=== PATIENT | male | born 1955 | race Caucasian/White ===

== ENCOUNTER 2016-12-10 00:59 | Inpatient (IN) | payer OTHER ==
[2016-12-10] VITALS (26 sets, daily range): BP systolic 111–199; BP diastolic 66–118; PULSE 58–97; RESP 15–20; TEMP 97.5–98.4; O2SAT 93–97
[~2016-12-10] VITALS: Ht 170.2 cm; Wt 70.7 kg
[2016-12-10] MEDS ORDERED: SODIUM CHLOR 0.9% 1000 ML INJ 1,000 ML IV ONE (01:20)
[2016-12-10] MEDS ORDERED: NITROGLYCERIN 0.4 MG SL 25 TABS/BTL SL STA (01:20)
[2016-12-10] MEDS ORDERED: HEPARIN SODIUM - IV 10,000 UNITS/10 ML VIAL IV STA (01:20)
[2016-12-10] MEDS ORDERED: ASPIRIN 81 MG CHEW TAB PO STA (01:20)
[2016-12-10] MEDS ORDERED: ASPIRIN 81 MG CHEW TAB ONE (01:25)
[2016-12-10] MEDS ORDERED: HEPARIN SODIUM - IV 10,000 UNITS/10 ML VIAL ONE (01:26)
[2016-12-10] MEDS ORDERED: NITROGLYCERIN-DEXTROSE INJ 250 ML IV SCH ×2 (01:30→04:15)
[2016-12-10] MEDS ORDERED: SODIUM CHLORIDE 0.9% FLUSH 5 ML FLUSH IVF PRN ×2 (01:30→04:15)
--- NOTE | 2016-12-10 01:32 | PD ---
HPI Chief Complaint: Chest Pain Time Seen by Provider: 01:20 Travel History International Travel<30 days: No Contact w/Intl Traveler<30days: No Traveled to known affect area: No History of Present Illness HPI The patient is a 61-year-old male who presents emergency department for chest pain. The patient states she was awakened with chest pain. The chest pain is substernal, associated with pain in the right elbow, and present intermittently for the last month. The patient states every time he gets substernal chest pain that he described as pressure, he will also have right elbow pain. He did have mild nausea earlier today, but denies any vomiting. The patient does have a history of hypertension and tobacco use, denies any known history of hyperlipidemia, previous CAD, or diabetes. The patient does state his mother from heart attack. The patient denies any recent exertional symptoms, but states his episodes of pain will last approximately 25- 30 minutes. There are no known alleviating or precipitating factors. PFSH Past Medical History Medical History: Denies Significant Hx Diminished Hearing: No Immunizations Current: Yes Past Surgical History Appendectomy: Yes Social History Alcohol Use: Yes (3 PINTS M-F) Tobacco Use: Yes (1PPD) Substance Use: No Allergies-Medications (Allergen,Severity, Reaction): Coded Allergies: No Known Allergies (Unverified , 12/10/16) Reported Meds & Prescriptions Reported Meds & Active Scripts Active No Active Prescriptions or Reported Medications Review of Systems Except as stated in HPI: all other systems reviewed are Neg General / Constitutional: No: Fever HENT: Positive: Lightheadedness Cardiovascular: Positive: Chest Pain or Discomfort, No: Diaphoresis, Dyspnea on exertion Respiratory: No: Shortness of Breath Gastrointestinal: Positive: Nausea Musculoskeletal: No: Weakness Neurologic: Positive: Dizziness Physical Exam Narrative GENERAL: Awake, alert, pleasant 61-year-old male who appears his stated age and is in no acute respiratory distress. SKIN: Warm and dry. HEAD: Atraumatic. Normocephalic. EYES: Pupils equal and round. No scleral icterus. No injection or drainage. ENT: No nasal bleeding or discharge. Mucous membranes pink and moist. NECK: Trachea midline. No JVD. CARDIOVASCULAR: Regular rate and rhythm. No murmur appreciated. Heart rate is in the 80s. RESPIRATORY: No accessory muscle use. Clear to auscultation. Breath sounds equal bilaterally. GASTROINTESTINAL: Abdomen soft, non-tender, nondistended. No rebound tenderness. MUSCULOSKELETAL: No obvious deformities. No clubbing. No cyanosis. No edema. NEUROLOGICAL: Awake and alert. No obvious cranial nerve deficits. Motor grossly within normal limits. Normal speech. PSYCHIATRIC: Appropriate mood and affect; insight and judgment normal. Data Data Last Documented VS Vital Signs Date Time Temp Pulse Resp B/P Pulse Ox O2 Delivery O2 Flow Rate FiO2 12/10/16 01:14 73 18 99 Nasal Cannula 2 12/10/16 01:10 97.9 184/106 Orders Troponin I (12/10/16 01:20) Ckmb (Isoenzyme) Profile (12/10/16 01:20) Complete Blood Count With Diff (12/10/16:20) I-Stat Profile (12/10/16 01:20) I-Stat Creatinine (12/10/16 01:20) Calcium (12/10/16:20) Magnesium (Mg) (12/10/16 01:20) Prothrombin Time / Inr (Pt) (12/10/16 01:20) Act Partial Throm Time (Ptt) (12/10/16 01:20) B-Type Natriuretic Peptide (12/10/16 01:20) Chest, Single Ap (12/10/16 01:20) Electrocardiogram (12/10/16 01:20) Oxygen Administration (12/10/16 01:20) Iv Access Insert/Monitor (12/10/16 01:20) Oximetry (12/10/16 01:20) Sodium Chlor 0.9% 1000 Ml Inj (Ns 1000 M (12/10/16 01:20) Sodium Chloride 0.9% Flush (Ns Flush) (12/10/16 01:30) Aspirin Chew (Aspirin Chew) (12/10/16 01:20) Nitroglycerin Sl (Nitrostat Sl) (12/10/16 01:20) Nitroglycerin-Dextrose Inj (Nitroglyceri (12/10/16 01:30) Heparin Inj (Heparin Inj) (12/10/16 01:20) Aspirin Chew (Aspirin Chew) (12/10/16 01:25) Heparin Inj (Heparin Inj) (12/10/16 01:26) MDM Medical Decision Making Medical Screen Exam Complete: Yes Emergency Medical Condition: Yes Medical Record Reviewed: Yes Interpretation(s) EKG reveals normal sinus rhythm with a rate 85. EKG reveals ST elevations in lead 3 of 1-2 mm and aVF of just over 1 mm. Patient also has reciprocal changes with ST depression in V2 and V3 of 2-3 mm. No obvious tall R-wave in V2 or V3, I think most likely inferior origin as opposed to posterior NC. Chest x-ray unremarkable, no evidence of dissection I-STAT revealed creatinine 0.9, sodium 137, potassium 4.1, chloride 102, BUN 14 , glucose 149, hemoglobin 17.7, hematocrit 52 Differential Diagnosis Differential diagnosis includes STEMI, ACS, GERD, esophageal spasm, pulmonary embolism, pericarditis, myocarditis, peptic ulcer disease, gastritis, atypical cholecystitis, pancreatitis. Narrative Course IV was established, labs are drawn and sent, and the patient was placed on cardiac telemetry monitoring and continuous pulse oximetry monitoring. EKG was ordered and interpreted. Patient's EKG was concerning for mild ST elevation in lead 3 and aVF with reciprocal changes in lead V2 and V3. I discussed the patient with the on-call STEMI physician/fiberglass pipe covering supervisor, Dr. Aguilera, who states to call a STEMI alert. The patient was administered aspirin, nitroglycerin, placed on a heparin drip and nitro drip. The patient will be admitted to the fiberglass pipe covering supervisor after going to the cardiac catheterization lab. Physician Communication Physician Communication I discussed the patient with Dr. Aguilera who will take the patient to the cardiac catheterization lab. The patient will be admitted to [facility]. Diagnosis Primary Impression: STEMI (ST elevation myocardial infarction) Qualified Code: I21.3 - ST elevation myocardial infarction (STEMI), unspecified artery Scripts No Active Prescriptions or Reported Meds Condition: Stable Jose Elias Rosado MD Dec 10, 2016 01:32
[2016-12-10 01:45] LABS: BASOPHIL # 0.1 TH/MM3 (0-0.2); BASOPHIL % 0.6 % (0.0-2.0); EOSINOPHIL # 0.3 TH/MM3 (0-0.4); EOSINOPHIL % 2.9 % (0.0-4.0); HEMO FLAGS DIFF FINAL; LYMPH % 25.1 % (9.0-44.0); LYMPHOCYTE # 2.2 TH/MM3 (1.0-4.8); MEAN CELL VOLUME 93.7 FL (80.0-100.0); MEAN CORPUSCULAR HGB CONC 34.2 % (32.0-36.0); MONO % 13.2 % (0.0-8.0); NEUT % 58.2 % (16.0-70.0); PLATELET COUNT 139 TH/MM3 (150-450); RED BLOOD COUNT 5.45 MIL/MM3 (4.50-5.90); RED CELL DISTRIBUTION WIDTH 13.7 % (11.6-17.2); WHITE BLOOD COUNT 8.7 TH/MM3 (4.0-11.0)
[2016-12-10 01:51] LABS: I-STAT POTASSIUM 4.1 MMOL/L (3.5-4.9); I-STAT SODIUM 137 MMOL/L (138-146)
[2016-12-10 01:54] LABS: APTT (PATIENT) 27.1 SEC (24.3-30.1); INTERNATIONAL NORMALIZED RATIO 1.1 RATIO; PROTHROMBIN TIME - PATIENT 11.9 SEC (9.8-11.6)
[2016-12-10] MEDS ORDERED: HEPARIN-NS/PF INJ 500 ML ONE (02:00)
[2016-12-10] MEDS ORDERED: MIDAZOLAM HCL 2 MG/2 ML VIAL ONE (02:01)
[2016-12-10 02:16] LABS: MAGNESIUM 2.1 MG/DL (1.5-2.5)
[2016-12-10] MEDS ORDERED: IOHEXOL 350 MG/ML 100 ML BTL (for Cath Lab) OTHER ONE (02:17)
[2016-12-10] MEDS ORDERED: IOHEXOL 350 MG/ML 50 ML BTL (for Cath Lab) OTHER ONE (02:17)
[2016-12-10 02:28] LABS: CREATINE KINASE 300 U/L (39-308)
[2016-12-10] MEDS ORDERED: BIVALIRUDIN 250 MG VIAL ONE (02:30)
--- NOTE | 2016-12-10 02:39 | RADRPT ---
EXAM DATE/TIME: 12/10/2016 01:36 [facility] COMPARISON: No previous studies available for comparison. INDICATIONS : Chest pain. MEDICAL HISTORY : None. SURGICAL HISTORY : None. ENCOUNTER: Initial ACUITY: 1 day PAIN SCORE: 7/10 LOCATION: Bilateral chest FINDINGS: A single view of the chest demonstrates the lungs to be symmetrically aerated without evidence of mas s, infiltrate or effusion. The cardiomediastinal contours are unremarkable. Osseous structures are intact. CONCLUSION: No acute disease. Eros Avila MD on December 10, 2016 at 2:36 Board Certified Radiologist. This report was verified electronically.
[2016-12-10 02:43] LABS: CKMB 28.1 NG/ML (0.5-3.6)
[2016-12-10] MEDS ORDERED: TICAGRELOR 90 MG TAB PO ONE (03:52)
[2016-12-10] MEDS ORDERED: oxyCODONE/ACETAMINOPHEN 5 MG/325 MG TAB PO PRN (04:15)
[2016-12-10] MEDS ORDERED: ACETAMINOPHEN 325 MG TAB PO PRN (04:15)
[2016-12-10] MEDS ORDERED: TEMAZEPAM 15 MG CAP PO PRN (04:15)
[2016-12-10] MEDS ORDERED: MISC INFORMATION XX ONE (04:15)
[2016-12-10] MEDS: SODIUM CHLOR 0.9% 1000 ML INJ 1,000 ML IV SCH ×2 (05:00→14:11)
--- NOTE | 2016-12-10 05:09 | MH ---
cc: BRAD QUEEN M.D. DATE OF ADMISSION: 12/10/2016 ADMISSION DIAGNOSES 1. Acute inferior ST-segment elevation myocardial infarction. 2. History of hypertension. 3. Chronic tobacco abuse. CHIEF COMPLAINT Chest pain. HISTORY OF PRESENT ILLNESS This is a 61-year-old man who has been having intermittent chest pain with pain in the right elbow for the past month; it has been getting progressively worse. He describes it as a pressure. He had some mild nausea today. He has a history of hypertension and tobacco, no known hyperlipidemia. His mother of a heart attack. The chest pains are coming and going, lasting 30 minutes at a time. PAST MEDICAL HISTORY Otherwise unremarkable. PAST SURGICAL HISTORY Appendectomy. SOCIAL HISTORY Drinks three pints a day Wednesday through Wednesday. Smokes a pack a day. ALLERGIES None. REVIEW OF SYSTEMS Otherwise noncontributory. PHYSICAL EXAMINATION GENERAL: A well-developed, well-nourished white male in mild distress. HEENT: Exam unremarkable. NECK: No JVD, no bruits. CHEST: Clear to auscultation. CARDIAC EXAM: S1, S2. Regular rate and rhythm. No murmurs or gallops. ABDOMEN: Soft, nontender. EXTREMITIES: No clubbing, cyanosis or edema. NEUROLOGIC: Alert and oriented. CARDIOLOGY STUDIES EKG shows an acute inferior STEMI. Labs are charted. IMPRESSION Acute inferior STEMI. PLAN 1. Please see cathode maker procedure note. The patient has had the circumflex stented with a complex procedure required. 2. We are going to put him on aspirin, Brilinta, beta caryn, STACI inhibitor and statin therapy. 3. Anticipate hospital stay of two days. 4. Consult [facility] for medical management. Brad Queen MD VEW/SSB /4:19 AM /5:03 AM
--- NOTE | 2016-12-10 05:25 | MA ---
cc: BRAD QUEEN M.D. DATE 12/10/2016 PROCEDURE PERFORMED 1. Left heart catheterization. 2. Left ventriculography. 3. Coronary angiography. 4. Stenting of the major first obtuse marginal branch of the left circumflex artery. 5. Complex and balloon angioplasty of mid to distal circumflex artery. 6. Balloon angioplasty of a second obtuse marginal branch. 7. AngioSeal. BRIEF HISTORY Oleksandr Brown is a 61-year-old man with hypertension and smoking history who presents with an acute inferior myocardial infarction. DESCRIPTION OF PROCEDURE The patient was brought to the Cardiac Clicker Operator under emergency conditions. At the start of procedure he was actually pain-free. Using 1% lidocaine for local anesthesia, a 6.5-Albanian sheath was easily inserted in the right femoral artery. Left coronary angiography was completed using a left 4 Derrick catheter. Right coronary angiography was completed using a 3DRC catheter. To perform intervention, I chose a 6-Albanian XB 4.0 guiding catheter. Next, I tried to wire the distal circumflex. There was more than a 180-degree bend to get into the distal circumflex. I was able to get a wire into a small second obtuse marginal branch but not into the distal circumflex proper. I then placed a wire down the obtuse marginal branch. I then took a [employer] wire and with extreme bend on it was able to get it into the distal circumflex vessel. The first obtuse marginal branch was then directly stented utilizing a 3.0 x 15-mm Resolute stent at 8 atmospheres. An excellent result was achieved in the obtuse marginal branch proper. I then ballooned the mid to distal circumflex utilizing a 2.0-mm balloon. The second obtuse marginal branch was subtotally occluded at this point and I went ahead and ballooned this utilizing a 2.0 balloon. I then opted to try to stent the mid to distal circumflex. It comes off at a 90-degree angle. A 3-mm stent would not cross. I then predilated further with 2.5-mm balloon. I was then able to deliver a 2.75 x 18-mm Resolute stent and deployed this at 14 atmospheres. Angiography now demonstrates a widely patent OM branch as well as the distal circumflex. The second obtuse marginal branch also remained patent. The patient tolerated procedure well and was free of chest pain at the end of the procedure with no complications. An angled pigtail catheter was used to measure left ventricular pressure followed by left ventriculography and then a pullback. The posterobasal segment of the left ventricle is akinetic. The estimated ejection fraction is 40%. There is 1+ mitral regurgitation. Next angiography was obtained of the right femoral artery via the sheath, followed by uncomplicated AngioSeal placement. The patient is now being prepped to go back to his room. FINDINGS I. HEMODYNAMICS. Left ventricular pressure was 114 over 13 with an end-diastolic pressure elevated at 34. Aortic pressure is 147/79 with a mean of 107. There was no gradient during pullback from the left ventricle to the aorta. II. LEFT VENTRICULOGRAPHY Left ventriculography shows posterobasal akinesis with an estimated ejection fraction of 40%. III. CORONARY ANGIOGRAPHY The left main coronary artery is large and normal-appearing. The left anterior descending artery is a transapical vessel with diffuse irregularities. It has at most about 20% proximal stenosis. There is a small caliber ramus intermediate branch which is actually smaller than 2-mm that has 70% ostial and mid disease. The circumflex artery is technically dominant. The major obtuse marginal branch has a focal 99% proximal stenosis coming off at a 90-degree angle from the circumflex marginal branches. The distal circumflex vessel which is subtotally occluded with only JEZ-1 flow. There is a second obtuse marginal branch which also has only JEZ-1 flow. The right coronary artery is nondominant with 40-50% diffuse disease. RESULTS OF INTERVENTION 1. Following stenting of the obtuse marginal branch a 0% residual stenosis had been achieved. 2. Following stenting of the mid to distal circumflex vessel a 0% residual stenosis had been achieved. 3. Following balloon angioplasty of a small second obtuse marginal branch, a 20% residual stenosis is achieved. CONCLUSIONS Successful complex intervention on a dominant circumflex, technically a bifurcation type lesion with excellent angiographic result achieved. PLAN 1. The patient has been loaded with Brilinta. We will continue aspirin and Brilinta. 2. We will introduce STACI inhibitor, beta caryn and statin therapy. 3. Anticipate a hospital stay of a couple of days. in the dictation on Oleksandr and right other list procedures unsure elicit everything sure left ventriculography is on their left heart catheterization Angio-Seal as always to procedures at within the profile. 4. Thank you. MD BARRON Leroy/TEQUILA /4:04 AM /5:09 AM
[2016-12-10] MEDS: ASPIRIN 81 MG CHEW TAB PO SCH (09:01)
[2016-12-10] MEDS: ATORVASTATIN 40 MG TAB PO SCH (09:01)
[2016-12-10] MEDS: SODIUM CHLORIDE 0.9% FLUSH 5 ML FLUSH IVF SCH ×2 (09:01→21:00)
[2016-12-10] MEDS: CARVEDILOL 3.125 MG TAB PO SCH ×2 (09:02→21:00)
[2016-12-10] MEDS: LISINOPRIL 5 MG TAB PO SCH (09:02)
--- NOTE | 2016-12-10 09:47 | HHI.PR ---
Subjective Remarks Follow-up ST elevation [place] status post PCI with stents placement 12/10/16-patient seen and examined; denies any chest pain or shortness of breath . He has no GI bleed. No acute event overnight and currently afebrile. Patient is requesting when continue be discharge Objective Vitals Vital Signs Date Time Temp Pulse Resp B/P Pulse Ox O2 Delivery O2 Flow Rate FiO2 12/10/16 08:00 61 12/10/16 07:00 58 12/10/16 07:00 97.6 58 18 124/81 97 12/10/16 06:00 65 12/10/16 06:00 65 146/90 94 12/10/16 05:00 64 140/98 94 12/10/16 05:00 97 12/10/16 04:30 97.5 65 18 146/92 93 12/10/16 04:20 64 12/10/16 02:00 68 18 142/91 97 Room Air 12/10/16 01:55 67 18 147/87 96 Nasal Cannula 2 12/10/16 01:44 76 18 152/84 97 Nasal Cannula 2 12/10/16 01:14 73 18 99 Nasal Cannula 2 12/10/16 01:10 97.9 97 18 184/106 12/10/16 01:00 97.5 93 15 199/118 96 Room Air I/O 12/09/16 12/09/16 12/09/16 12/10/16 12/10/16 12/10/16 07:00 15:00 23:00 07:00 15:00 23:00 Intake Total 1135 ml Output Total 1000 ml Balance 135 ml Intake Oral 0 ml IV Total 1135 ml Output Urine Total 1000 ml # Bowel Movements 0 Result Diagram: 12/10/16 013 Imaging Last Impressions Chest X-Ray 12/10/16 0120 Signed Impressions: Service Date/Time: November 01:36 - CONCLUSION: No acute disease. Eros Avila MD Objective Remarks GENERAL: NAD SKIN: Warm and dry.Right groin with some induration HEAD: Normocephalic. EYES: No scleral icterus. No injection or drainage. NECK: Supple, trachea midline. No JVD or lymphadenopathy. CARDIOVASCULAR: Regular rate and rhythm without murmurs, gallops, or rubs. RESPIRATORY: Breath sounds equal bilaterally. No accessory muscle use. GASTROINTESTINAL: Abdomen soft, non-tender, nondistended. MUSCULOSKELETAL: No cyanosis, or edema. BACK: Nontender without obvious deformity. No CVA tenderness. A/P Problem List: (1) STEMI (ST elevation myocardial infarction) ICD Code: I21.3 Status: Acute (2) Nicotine dependence ICD Code: F17.200 Status: Acute (3) Alcohol abuse ICD Code: F10.10 Status: Acute Assessment and Plan 61-year-old male with 1. ST elevation [place]: Status post left heart catheterization 12/09/16 with PCI + stent placement. Appreciate input from cardiology, continue with aspirin, Brilinta, beta caryn, STACI inhibitor, statin, Lipitor. 2-D echo pending. Telemetry monitoring 2. History of hypertension: On Coreg 3. Chronic tobacco abuse: Counseled to quit, start nicotine patch. 4. History of alcohol abuse: Counseled to quit, start rally pack and CIWA per protocol. watch for DTs and Librium when necessary Problem Qualifiers (1) STEMI (ST elevation myocardial infarction): Qualified Code: I21.3 - ST elevation myocardial infarction (STEMI), unspecified artery Jeremie Neri MD Dec 10, 2016 09:47
[2016-12-10] MEDS ORDERED: LORazepam 2 MG/ML VIAL IV PUSH PRN ×4 (10:00)
[2016-12-10] MEDS ORDERED: chlordiazePOXIDE 25 MG CAP PO PRN (10:00)
[2016-12-10] MEDS ORDERED: LORazepam 1 MG TAB PO PRN (10:00)
[2016-12-10] MEDS ORDERED: FLUMAZENIL 0.5 MG/5 ML VIAL IV PUSH PRN (10:00)
[2016-12-10] MEDS ORDERED: LORazepam 2 MG TAB PO PRN (10:00)
[2016-12-10] MEDS ORDERED: NICOTINE 21 MG/24 HR PATCH TD SCH (11:00)
[2016-12-10] MEDS: THIAMINE HCL 100 MG TAB PO SCH (11:28)
[2016-12-10] MEDS: MULTIVITAMINS/MINERALS THERAPEUTIC TAB PO SCH (11:28)
--- NOTE | 2016-12-10 20:56 | EKG ---
Date Performed: 12/10/2016 Time Performed: 05:58:26 PTAGE: 61 years EKG: Sinus rhythm Severe right axis deviation Possible inferior infarct - age undetermined Anterolateral ST-T changes may be due to myocardial ischemia Low QRS voltages in limb leads Abnormal ECG PREVIOUS TRACING : 12/10/2016 00.10 DOCTOR: Grzegorz Barbour Interpretating Date/Time 12/10/2016 20:54:31
--- NOTE | 2016-12-10 21:00 | EKG ---
Date Performed: 12/10/2016 Time Performed: 00:10:23 PTAGE: 61 years EKG: Sinus rhythm POSSIBLE LEFT ATRIAL ENLARGEMENT RIGHT VENTRICULAR HYPERTROPHY AND ST-T CHANGE ST ELEVATION, CONSIDE R INFERIOR INJURY ACUTE PA NO PREVIOUS TRACING DOCTOR: Grzegorz Barbour Interpretating Date/Time 12/10/2016 20:59:27
[2016-12-11] VITALS (12 sets, daily range): BP systolic 91–109; BP diastolic 60–68; PULSE 59–74; RESP 16–18; TEMP 97.6–97.9; O2SAT 94–97
[2016-12-11 04:11] LABS: AUTOMATED NEUTROPHIL # 5.5 TH/MM3 (1.8-7.7); BASOPHIL % 0.3 % (0.0-2.0); EOSINOPHIL # 0.3 TH/MM3 (0-0.4); EOSINOPHIL % 2.7 % (0.0-4.0); HEMATOCRIT 43.8 % (39.0-51.0); HEMO FLAGS DIFF FINAL; LYMPH % 26.1 % (9.0-44.0); LYMPHOCYTE # 2.4 TH/MM3 (1.0-4.8); MEAN CELL VOLUME 93.2 FL (80.0-100.0); MEAN CORPUSCULAR HEMOGLOBIN 32.4 PG (27.0-34.0); MEAN CORPUSCULAR HGB CONC 34.7 % (32.0-36.0); MONO % 11.7 % (0.0-8.0); NEUT % 59.2 % (16.0-70.0); PLATELET COUNT 111 TH/MM3 (150-450); RED CELL DISTRIBUTION WIDTH 13.9 % (11.6-17.2); WHITE BLOOD COUNT 9.3 TH/MM3 (4.0-11.0)
[2016-12-11 04:45] LABS: BICARBONATE 24.9 MEQ/L (21.0-32.0); HDL CHOLESTEROL 42.9 MG/DL (40.0-60.0)
[2016-12-11] MEDS: CARVEDILOL 3.125 MG TAB PO SCH (08:25)
[2016-12-11] MEDS: MULTIVITAMINS/MINERALS THERAPEUTIC TAB PO SCH (08:25)
[2016-12-11] MEDS: ATORVASTATIN 40 MG TAB PO SCH (08:25)
[2016-12-11] MEDS: THIAMINE HCL 100 MG TAB PO SCH (08:25)
[2016-12-11] MEDS: LISINOPRIL 5 MG TAB PO SCH (08:25)
[2016-12-11] MEDS: ASPIRIN 81 MG CHEW TAB PO SCH (08:25)
[2016-12-11] MEDS: SODIUM CHLORIDE 0.9% FLUSH 5 ML FLUSH IVF SCH (08:26)
[2016-12-11] MEDS ORDERED: TICAGRELOR 90 MG TAB PO SCH (09:00)
[2016-12-11] MEDS ORDERED: FOLIC ACID 1 MG TAB PO SCH (09:00)
[2016-12-11] MEDS ORDERED: REMOVE OLD PATCH TD SCH (09:00)
--- NOTE | 2016-12-11 10:47 | PD.CARD.PN ---
Subjective Subjective Remarks no angina Objective Medications Current Medications Medications (Trade) Dose Ordered Sig/Hannah Route Start Time Stop Time Status Last Admin (NS Flush) 2 ml UNSCH PRN IVF 12/10/16 04:15 (NS Flush) 2 ml BID IVF 12/10/16 09:00 12/11/16 08:26 (Tylenol) 325 mg Q4H PRN PO 12/10/16 04:15 (Percocet 5-325 Mg) 1 tab Q4H PRN PO 12/10/16 04:15 (Restoril) 15 mg HS PRN PO 12/10/16 04:15 (Aspirin Chew) 81 mg DAILY PO 12/10/16 09:00 12/11/16 08:25 Ticagrelor 90 mg 90 mg BID PO 12/11/16 09:00 12/11/16 08:24 (Nitroglycerin-Dextrose Inj) 250 ml @ 0 mls/hr TITRATE IV 12/10/16 04:15 (Coreg) 3.125 mg BID PO 12/10/16 09:00 12/11/16 08:25 (Prinivil) 5 mg DAILY PO 12/10/16 09:00 12/11/16 08:25 (Lipitor) 40 mg DAILY PO 12/10/16 09:00 12/11/16 08:25 (Folate) 1 mg DAILY PO 12/11/16 09:00 12/16/16 08:59 12/11/16 08:25 (Vitamin B1) 100 mg DAILY PO 12/10/16 11:00 12/11/16 08:25 (Theragran M Tab) 1 tab DAILY PO 12/10/16 11:00 12/15/16 10:59 12/11/16 08:25 (Romazicon Inj) 0.2 mg Q1M PRN IV PUSH 12/10/16 10:00 (Ativan) 1 mg Q4H PRN PO 12/10/16 10:00 (Ativan Inj) 1 mg Q4H PRN IV PUSH 12/10/16 10:00 (Ativan) 2 mg Q2H PRN PO 12/10/16 10:00 (Ativan Inj) 2 mg Q2H PRN IV PUSH 12/10/16 10:00 (Ativan Inj) 2 mg Q1H PRN IV PUSH 12/10/16 10:00 (Ativan Inj) 2 mg Q15M PRN IV PUSH 12/10/16 10:00 (Librium) 25 mg TID PRN PO 12/10/16 10:00 Miscellaneous Information 1 DAILY TD 12/11/16 09:00 12/11/16 08:26 Vital Signs / I&O Vital Signs Date Time Temp Pulse Resp B/P Pulse Ox O2 Delivery O2 Flow Rate FiO2 12/11/16 09:00 67 12/11/16 08:00 62 12/11/16 07:00 97.9 66 18 109/67 94 12/11/16 07:00 66 12/11/16 06:00 59 12/11/16 05:00 60 12/11/16 04:00 72 12/11/16 04:00 61 12/11/16 04:00 63 16 91/60 97 12/11/16 03:00 61 12/11/16 02:00 61 12/11/16 01:00 64 12/11/16 00:00 65 18 12/11/16 00:00 65 12/10/16 23:00 69 12/10/16 22:00 66 12/10/16 21:00 70 12/10/16 20:00 72 12/10/16 20:00 98.4 72 18 111/69 94 12/10/16 19:00 69 12/10/16 18:00 70 12/10/16 17:00 67 12/10/16 16:00 66 12/10/16 15:00 97.7 68 20 112/66 95 12/10/16 15:00 68 12/10/16 14:00 77 12/10/16 13:00 65 12/10/16 12:00 67 12/10/16 11:00 61 12/10/16 11:00 97.6 61 18 136/83 95 I/O 12/10/16 12/10/16 12/10/16 12/11/16 12/11/16 12/11/16 07:00 15:00 23:00 07:00 15:00 23:00 Intake Total 1135 ml 1935 ml 279 ml Output Total 1000 ml 850 ml 400 ml Balance 135 ml 1085 ml -121 ml Intake Oral 0 ml 1000 ml 240 ml IV Total 1135 ml 935 ml 39 ml Output Urine Total 1000 ml 850 ml 400 ml # Bowel Movements 0 0 0 Physical Exam Alert Chest clear CV S1S2 RRR Abd soft Ext no C/C/E EKG's c/w reperfusion Laboratory Laboratory Tests Test 12/11/16 03:18 White Blood Count 9.3 TH/MM3 Red Blood Count 4.70 MIL/MM3 Hemoglobin 15.2 GM/DL Hematocrit 43.8 % Mean Corpuscular Volume 93.2 FL Mean Corpuscular Hemoglobin 32.4 PG Mean Corpuscular Hemoglobin 34.7 % Concent Red Cell Distribution Width 13.9 % Platelet Count 111 TH/MM3 Mean Platelet Volume 9.7 FL Neutrophils (%) (Auto) 59.2 % Lymphocytes (%) (Auto) 26.1 % Monocytes (%) (Auto) 11.7 % Eosinophils (%) (Auto) 2.7 % Basophils (%) (Auto) 0.3 % Neutrophils # (Auto) 5.5 TH/MM3 Lymphocytes # (Auto) 2.4 TH/MM3 Monocytes # (Auto) 1.1 TH/MM3 Eosinophils # (Auto) 0.3 TH/MM3 Basophils # (Auto) 0.0 TH/MM3 CBC Comment DIFF FINAL Differential Comment Sodium Level 138 MEQ/L Potassium Level 4.0 MEQ/L Chloride Level 106 MEQ/L Carbon Dioxide Level 24.9 MEQ/L Anion Gap 7 MEQ/L Blood Urea Nitrogen 12 MG/DL Creatinine 1.02 MG/DL Estimat Glomerular Filtration 74 ML/MIN Rate Random Glucose 85 MG/DL Calcium Level 8.2 MG/DL Total Creatine Kinase 272 U/L Triglycerides Level 100 MG/DL Cholesterol Level 139 MG/DL LDL Cholesterol 76 MG/DL HDL Cholesterol 42.9 MG/DL Cholesterol/HDL Ratio 3.24 RATIO Assessment and Plan Assessment and Plan s/p STEMI s/p complex stenting. Discussed smoking cessation, meds, diet activity. OV 2 weeks. OK to discharge Shawn Aguilera MD Dec 11, 2016 10:47
--- NOTE | 2016-12-11 11:30 | HHI.PR ---
Subjective Remarks Follow-up ST elevation [place] status post PCI with stents placement 12/10/16-patient seen and examined; denies any chest pain or shortness of breath . He has no GI bleed. No acute event overnight and currently afebrile. Patient is requesting when continue be discharge 12/11/16-patient seen and examined; denies any chest pain or shortness of breath. No acute event overnight Objective Vitals Vital Signs Date Time Temp Pulse Resp B/P Pulse Ox O2 Delivery O2 Flow Rate FiO2 12/11/16 10:00 69 12/11/16 09:00 67 12/11/16 08:00 62 12/11/16 07:00 97.9 66 18 109/67 94 12/11/16 07:00 66 12/11/16 06:00 59 12/11/16 05:00 60 12/11/16 04:00 72 12/11/16 04:00 61 12/11/16 04:00 63 16 91/60 97 12/11/16 03:00 61 12/11/16 02:00 61 12/11/16 01:00 64 12/11/16 00:00 65 18 12/11/16 00:00 65 12/10/16 23:00 69 12/10/16 22:00 66 12/10/16 21:00 70 12/10/16 20:00 72 12/10/16 20:00 98.4 72 18 111/69 94 12/10/16 19:00 69 12/10/16 18:00 70 12/10/16 17:00 67 12/10/16 16:00 66 12/10/16 15:00 97.7 68 20 112/66 95 12/10/16 15:00 68 12/10/16 14:00 77 12/10/16 13:00 65 12/10/16 12:00 67 I/O 12/10/16 12/10/16 12/10/16 12/11/16 12/11/16 12/11/16 07:00 15:00 23:00 07:00 15:00 23:00 Intake Total 1135 ml 1935 ml 279 ml Output Total 1000 ml 850 ml 400 ml Balance 135 ml 1085 ml -121 ml Intake Oral 0 ml 1000 ml 240 ml IV Total 1135 ml 935 ml 39 ml Output Urine Total 1000 ml 850 ml 400 ml # Bowel Movements 0 0 0 Result Diagram: 12/11/168 12/11/16 0318 Imaging Last Impressions Chest X-Ray 12/10/16 0120 Signed Impressions: Service Date/Time: November 01:36 - CONCLUSION: No acute disease. Eros Avila MD Objective Remarks GENERAL: NAD SKIN: Warm and dry.Right groin with some induration HEAD: Normocephalic. EYES: No scleral icterus. No injection or drainage. NECK: Supple, trachea midline. No JVD or lymphadenopathy. CARDIOVASCULAR: Regular rate and rhythm without murmurs, gallops, or rubs. RESPIRATORY: Breath sounds equal bilaterally. No accessory muscle use. GASTROINTESTINAL: Abdomen soft, non-tender, nondistended. MUSCULOSKELETAL: No cyanosis, or edema. BACK: Nontender without obvious deformity. No CVA tenderness. Procedures Emergent catheterization with PCI and stent placement 12/09/16 A/P Problem List: (1) STEMI (ST elevation myocardial infarction) ICD Code: I21.3 Status: Acute (2) Nicotine dependence ICD Code: F17.200 Status: Acute (3) Alcohol abuse ICD Code: F10.10 Status: Acute Assessment and Plan 61-year-old male with 1. ST elevation [place]: Status post left heart catheterization 12/09/16 with PCI + stent placement. Appreciate input from cardiology, continue with aspirin, Brilinta, beta caryn, STACI inhibitor, statin, Lipitor.. Telemetry monitoring 2. History of hypertension: On Coreg 3. Chronic tobacco abuse: Counseled to quit, on nicotine patch. 4. History of alcohol abuse: Counseled to quit, on rally pack and CIWA per protocol. watch for DTs and Librium when necessary Problem Qualifiers (1) STEMI (ST elevation myocardial infarction): Qualified Code: I21.3 - ST elevation myocardial infarction (STEMI), unspecified artery Jeremie Neri MD Dec 11, 2016 11:29 Jeremie Neri MD Dec 11, 2016 11:29
[2016-12-11] MEDS ORDERED: ASPI81TA11 PO (11:34)
[2016-12-11] MEDS ORDERED: CARV3.125 PO (11:34)
[2016-12-11] MEDS ORDERED: BRIL90TA PO (11:34)
[2016-12-11] MEDS ORDERED: LISI-519 PO (11:34)
[2016-12-11] MEDS ORDERED: VITA100T2 PO (11:34)
[2016-12-11] MEDS ORDERED: LIPI40TA PO (11:34)
--- NOTE | 2016-12-11 11:36 | HHI.DS ---
Discharge Summary Admission Date Dec 10, 2016 at 04:31 Discharge Date: Dec 11, 2016 Admitting Diagnosis STEMI (1) STEMI (ST elevation myocardial infarction) ICD Code: I21.3 (2) Nicotine dependence ICD Code: F17.200 (3) Alcohol abuse ICD Code: F10.10 Procedures Emergent catheterization with PCI and stent placement 12/09/16 Brief History - From Admission This is a 61-year-old man who has been having intermittent chest pain with pain in the right elbow for the past month; it has been getting progressively worse. He describes it as a pressure. He had some mild nausea today. He has a history of hypertension and tobacco, no known hyperlipidemia. His mother of a heart attack. The chest pains are coming and going, lasting 30 minutes at a time. CBC/BMP: 12/11/16 0318 12/11/16 0318 Significant Findings Laboratory Tests Test 12/10/16 12/11/16 01:30 03:18 Hemoglobin 17.5 GM/DL (13.0-17.0) Bedside Hemoglobin 17.7 G/DL (12.0-17.0) Bedside Hematocrit 52.0 % (38.0-51.0) Platelet Count 139 TH/MM3 111 TH/MM3 (150-450) (150-450) Monocytes (%) (Auto) 13.2 % 11.7 % (0.0-8.0) (0.0-8.0) Monocytes # (Auto) 1.1 TH/MM3 1.1 TH/MM3 (0-0.9) (0-0.9) Prothrombin Time 11.9 SEC (9.8-11.6) Bedside Sodium 137 MMOL/L (138-146) Bedside Glucose 149 MG/DL (60-95) Creatine Kinase MB 28.1 NG/ML (0.5-3.6) Troponin I 2.85 NG/ML (0.02-0.05) B-Type Natriuretic Peptide 158 PG/ML (0-100) Estimat Glomerular Filtration 74 ML/MIN (>89) Rate Calcium Level 8.2 MG/DL (8.5-10.1) Imaging Last Impressions Chest X-Ray 12/10/16 0120 Signed Impressions: Service Date/Time: November 01:36 - CONCLUSION: No acute disease. Eros Avila MD PE at Discharge GENERAL: NAD SKIN: Warm and dry.Right groin with some induration HEAD: Normocephalic. EYES: No scleral icterus. No injection or drainage. NECK: Supple, trachea midline. No JVD or lymphadenopathy. CARDIOVASCULAR: Regular rate and rhythm without murmurs, gallops, or rubs. RESPIRATORY: Breath sounds equal bilaterally. No accessory muscle use. GASTROINTESTINAL: Abdomen soft, non-tender, nondistended. MUSCULOSKELETAL: No cyanosis, or edema. BACK: Nontender without obvious deformity. No CVA tenderness. Hospital Course 1. ST elevation NV: Status post left heart catheterization 12/09/16 with PCI + stent placement. Appreciated input from cardiology, he was treated with nitroglycerin, aspirin, Brilinta, beta caryn, STACI inhibitor, statin, Lipitor.. Telemetry monitoring 2. History of hypertension: started on Coreg 3. Chronic tobacco abuse: Counseled to quit 4. History of alcohol abuse: Counseled to quit, placed on rally pack and CIWA per protocol. Librium when necessary Pt Condition on Discharge: Stable Discharge Disposition: Discharge Home Discharge Time: <= 30 minutes Discharge Instructions DIET: Follow Instructions for: Heart Healthy Diet Activities you can perform: Regular-No Restrictions Follow up Referrals: Cardiology - 2 Weeks PCP Follow-up - 1 Week New Medications: Aspirin DR (Aspirin EC) 81 Mg Tabdr 81 MG PO DAILY Stroke Prevention #30 Ref 0 TAB Atorvastatin (Lipitor) 40 Mg Tab 40 MG PO DAILY Cholesterol Management #30 Ref 7 TAB Carvedilol (Coreg) 3.125 Mg Tab 3.125 MG PO BID Blood Pressure Management #60 Ref 7 TAB Lisinopril (Lisinopril) 5 Mg Tab 5 MG PO DAILY Blood Pressure Management #30 TAB Thiamine (Vitamin B-1) 100 Mg Tab 100 MG PO DAILY Alcohol Detox #30 TAB Ticagrelor (Brilinta) 90 Mg Tab 90 MG PO BID Prevent Blood Clot #60 Ref 7 TAB Jeremie Neri MD Dec 11, 2016 11:36
--- NOTE | 2016-12-11 22:37 | EKG ---
Date Performed: 12/11/2016 Time Performed: 07:11:56 PTAGE: 61 years EKG: Sinus rhythm POSSIBLE LEFT ATRIAL ENLARGEMENT INDETERMINATE AXIS LOW QRS VOLTAGE IN EXTREMITY LEADS LEFT POSTERIO R FASCICULAR BLOCK POSSIBLE INFERIOR MYOCARDIAL INFARCTION , OF INDETERMINATE AGE ST DEVIATION AND MA RKED T-WAVE ABNORMALITY, CONSIDER LATERAL ISCHEMIA ABNORMAL ECG PREVIOUS TRACING : 12/10/2016 05.58 DOCTOR: Janeth Jung Interpretating Date/Time 12/11/2016 22:35:07
== END 2016-12-11 14:51 | disposition home or self-care (01) | DRG 247 ==
LOC: NEPE 00:59 → NEDA 04:31 → HCVR 04:34
PROVIDERS: ADMIT Internal Medicine Cardiovascular Disease; ATTEND Internal Medicine Cardiovascular Disease
PROC: 027135Z Dilation of Coronary Artery, Two Arteries with Two Drug-eluting Intraluminal Devices, Percutaneous Approach (ICD-10-PCS; principal; 2016-12-10)
PROC: 02703ZZ Dilation of Coronary Artery, One Artery, Percutaneous Approach (ICD-10-PCS; 2016-12-10)
PROC: 4A023N7 Measurement of Cardiac Sampling and Pressure, Left Heart, Percutaneous Approach (ICD-10-PCS; 2016-12-10)
PROC: B2111ZZ Fluoroscopy of Multiple Coronary Arteries using Low Osmolar Contrast (ICD-10-PCS; 2016-12-10)
PROC: B2151ZZ Fluoroscopy of Left Heart using Low Osmolar Contrast (ICD-10-PCS; 2016-12-10)
DX: I21.19 ST elevation (STEMI) myocardial infarction involving other coronary artery of inferior wall (principal); I10 Essential (primary) hypertension; F17.210 Nicotine dependence, cigarettes, uncomplicated; Z82.49 Family history of ischemic heart disease and other diseases of the circulatory system; F10.10 Alcohol abuse, uncomplicated
CPT/HCPCS: 71010; 80048; 80061; 82310; 82435; 82550; 82552; 82565; 82947; 83735; 83880; 84132; 84295; 84484; 84520; 85025; 85610; 85730; 92941; 93005; 93458; 96365; 96366; 96374; 96375; C1725; C1751; C1760; C1769; C1874; C1887; C1893; G0269; J0583; J1644; J2250; J7030; Q9967